=== PATIENT | female | born 1980 | race African-American/Black ===

== ENCOUNTER 2017-11-16 16:48 | Emergency (ER) | payer MEDICAID, OTHER ==
[~2017-11-16] VITALS: Ht 170.2 cm; Wt 77.1 kg
[2017-11-16] MEDS ORDERED: NKM (17:10)
[2017-11-16 17:16] VITALS: BP 104/74
--- NOTE | 2017-11-16 17:38 | Emergency Room Report ---
History of Present Illness General Chief Complaint: General Complaint Source: Patient (Rubin Mir) Present Illness HPI 37 yo female patient presents to ER with complaints of "not feeling well" and insomnia. Patient reports she has not been eating a lot of food and feels she has been harming herself "by neglect". Patient states she she feels she "may hurt herself" if she is discharged home. Patient requesting transfer to psychiatric facility. Patient reports history of psychiatric holds. Patient reports history of bipolar, anxiety, and "thinks she might be" schizophrenic. Patient reports having an appointment with psychologist "coming up" but does not feel she will be able to "keep up with the appointments. Patient states she is not currently on any medications for psych disorders. Patient denies recent illness, fever, chest pain, SOB. (Rubin Mir) Allergies: Coded Allergies: No Known Allergies (Unverified , 11/17/17) Patient History Past Medical History: see triage record Pertinent Family History: unable to obtain Social History: Reports: smoking - cigarettes Last Menstrual Period: unknown Immunizations: UTD Reviewed Nursing Documentation: PMH: Agreed, PSxH: Agreed (Rubin Mir) Nursing Documentation-PMH Past Medical History: No History, Except For History Of Psychiatric Problem: Yes - Anxiety, Depression (Rubin Mir) Review of Systems All Other Systems: negative except mentioned in HPI (Rubin Mir) Physical Exam Vital Signs Date Time Temp Pulse Resp B/P (MAP) Pulse Ox O2 Delivery O2 Flow Rate FiO2 11/16/17 17:06 97.9 78 16 104/74 98 Room Air Sp02 EP Interpretation: reviewed, normal General Appearance: no apparent distress, alert, GCS 15, non-toxic, mild distress Head: normocephalic, atraumatic Eyes: bilateral eye normal inspection, bilateral eye PERRL ENT: hearing grossly normal, normal pharynx, no angioedema, normal voice Neck: full range of motion, supple/symm/no masses Respiratory: chest non-tender, lungs clear, normal breath sounds, speaking full sentences Cardiovascular #1: regular rate, rhythm, no edema Gastrointestinal: normal bowel sounds, non tender, soft, non-distended, no guarding, no rebound Genitourinary: no CVA tenderness Musculoskeletal: back normal, digits/nails normal, gait/station normal, normal range of motion, non-tender Neurologic: alert, oriented x3, responsive, environmental conflict manager III-XII nml as tested, motor strength/tone normal, sensory intact, speech normal Psychiatric: depressed affect Skin: normal color, no rash, warm/dry, well hydrated (Rubin Mir) Medical Decision Making PA Attestation Dr. Noble is my supervising Physician whom patient management has been discussed with. (Rubin Mir) Diagnostic Impression: Primary Impression: Encounter for person awaiting admission to psychiatric care setting ER Course Pt. presents to the ED c/o anxiety and insomnia. Ddx considered but are not limited to anxiety, depression, mental health disorder, suicidal ideation. Vital signs: are WNL, pt. is afebrile ORDERS: Began psych workup to clear patient for transfer to mental health facility. ER COURSE: Patient resting comfortably in bed, in no acute distress. Patient is medically cleared for discharge to mental health facility. Urine drug screen negative Serum alcohol negative (Patient re-evaluations below) DISCHARGE: At this time pt. is stable for d/c to mental health facility. Care plan and follow up instructions have been discussed with the patient prior to transfer. Discuss treatment plan with Dr. Calderon who will oversee transfer of patient. Test 11/17/17 01:00 Urine HCG, Qualitative Negative Labs Test 11/16/17 18:25 11/16/17 19:09 White Blood Count 7.0 K/UL (4.8-10.8) Red Blood Count 4.38 M/UL (4.20-5.40) Hemoglobin 13.6 G/DL (12.0-16.0) Hematocrit 40.8 % (37.0-47.0) Mean Corpuscular Volume 93 FL (80-99) Mean Corpuscular Hemoglobin 31.1 PG (27.0-31.0) Mean Corpuscular Hemoglobin Concent 33.4 G/DL (32.0-36.0) Red Cell Distribution Width 12.3 % (11.6-14.8) Platelet Count 228 K/UL (150-450) Mean Platelet Volume 7.2 FL (6.5-10.1) Neutrophils (%) (Auto) 50.6 % (45.0-75.0) Lymphocytes (%) (Auto) 43.5 % (20.0-45.0) Monocytes (%) (Auto) 3.4 % (1.0-10.0) Eosinophils (%) (Auto) 1.5 % (0.0-3.0) Basophils (%) (Auto) 1.0 % (0.0-2.0) Sodium Level 139 MMOL/L (136-145) Potassium Level 3.5 MMOL/L (3.5-5.1) Chloride Level 102 MMOL/L (98-107) Carbon Dioxide Level 28 MMOL/L (21-32) Anion Gap 9 mmol/L (5-15) Blood Urea Nitrogen 12 mg/dL (7-18) Creatinine 0.9 MG/DL (0.55-1.30) Estimat Glomerular Filtration Rate > 60 mL/min (>60) Glucose Level 121 MG/DL (74-106) Calcium Level 9.4 MG/DL (8.5-10.1) Total Bilirubin 0.2 MG/DL (0.2-1.0) Aspartate Amino Transf (AST/SGOT) 19 U/L (15-37) Alanine Aminotransferase (ALT/SGPT) 35 U/L (12-78) Alkaline Phosphatase 61 U/L (46-116) Total Protein 7.8 G/DL (6.4-8.2) Albumin 3.9 G/DL (3.4-5.0) Globulin 3.9 g/dL Albumin/Globulin Ratio 1.0 (1.0-2.7) Salicylates Level 5.7 ug/mL (2.8-20) Acetaminophen Level < 2 MCG/ML (10-30) Serum Alcohol < 3 mg/dL Urine Color Yellow Urine Appearance Clear Urine pH 6 (4.5-8.0) Urine Specific Avery 1.020 (1.005-1.035) Urine Protein Negative (NEGATIVE) Urine Glucose (UA) Negative (NEGATIVE) Urine Ketones Negative (NEGATIVE) Urine Occult Blood Negative (NEGATIVE) Urine Nitrite Negative (NEGATIVE) Urine Bilirubin Negative (NEGATIVE) Urine Urobilinogen Normal MG/DL (0.0-1.0) Urine Leukocyte Esterase 1+ (NEGATIVE) Urine RBC 0-2 /HPF (0 - 2) Urine WBC 0-2 /HPF (0 - 2) Urine Squamous Epithelial Cells Few /LPF (NONE/OCC) Urine Calcium Oxalate Crystals Few /LPF (NONE) Urine Bacteria None /HPF (NONE) Urine Opiates Screen Negative (NEGATIVE) Urine Barbiturates Screen Negative (NEGATIVE) Phencyclidine (PCP) Screen Negative (NEGATIVE) Urine Amphetamines Screen Negative (NEGATIVE) Urine Benzodiazepines Screen Negative (NEGATIVE) Urine Cocaine Screen Negative (NEGATIVE) Urine Marijuana (THC) Screen Negative (NEGATIVE) (Rubin Mir) ER Course The patient was accepted by [facility] for voluntary psych admission. (Yasir Calderon) Last Vital Signs Date Time Temp Pulse Resp B/P (MAP) Pulse Ox O2 Delivery O2 Flow Rate FiO2 11/16/17 17:06 97.9 78 16 104/74 98 Room Air Reevaluation Impression 0800PM Patient requesting Ativan or Benadryl to help "calm down". Patient reports feeling very anxious. Orders placed for Benadryl. Patient agrees to treatment. Patient is medically cleared to be transferred to Mental Health facility. 0930PM Patient complaining of anxiousness and requesting to be allowed to go outside to smoke a cigarette. Patient given Ativan 2mg. (Rubin Mir) Disposition: XFER SNF Condition: Stable Rubin Mir Nov 16, 2017 17:37 Yasir Calderon Nov 17, 2017 02:18
[2017-11-16 18:54] LABS: EOSINOPHILS % (AUTO) 1.5 % (0.0-3.0); HEMATOCRIT 40.8 % (37.0-47.0); HEMOGLOBIN 13.6 G/DL (12.0-16.0); LYMPHOCYTES % (AUTO) 43.5 % (20.0-45.0); MEAN CORPUSCULAR VOLUME 93 FL (80-99); MONOCYTES % (AUTO) 3.4 % (1.0-10.0); NEUTROPHILS % (AUTO) 50.6 % (45.0-75.0); PLATELET COUNT 228 K/UL (150-450); RED BLOOD COUNT 4.38 M/UL (4.20-5.40); RED CELL DISTRIBUTION WIDTH 12.3 % (11.6-14.8)
[2017-11-16 19:13] LABS: ANION GAP 9 mmol/L (5-15); BLOOD UREA NITROGEN 12 mg/dL (7-18); CALCIUM 9.4 MG/DL (8.5-10.1); CARBON DIOXIDE 28 MMOL/L (21-32); CHLORIDE 102 MMOL/L (98-107); CREATININE 0.9 MG/DL (0.55-1.30); POTASSIUM 3.5 MMOL/L (3.5-5.1); SODIUM 139 MMOL/L (136-145)
[2017-11-16 19:17] LABS: ALANINE AMINOTRANSFERASE 35 U/L (12-78); ALBUMIN 3.9 G/DL (3.4-5.0); ALKALINE PHOSPHATASE 61 U/L (46-116); ASPARTATE AMINO TRANSFERASE 19 U/L (15-37); BILIRUBIN,TOTAL 0.2 MG/DL (0.2-1.0)
[2017-11-16 19:34] LABS: APPEARANCE,URINE CLEAR; BILIRUBIN, URINE NEGATIVE (NEGATIVE); GLUCOSE, URINE (UA) NEGATIVE (NEGATIVE); KETONES,URINE NEGATIVE (NEGATIVE); LEUKOCYTE ESTERASE ,URINE 1+ (NEGATIVE); NITRITE,URINE NEGATIVE (NEGATIVE); PH,URINE 6 (4.5-8.0); PROTEIN,URINE NEGATIVE (NEGATIVE); UROBILINOGEN,URINE NORMAL MG/DL (0.0-1.0)
[2017-11-16 19:35] LABS: COLOR,URINE YELLOW
[2017-11-16] MEDS ORDERED: LORazepam 1mg tab ORAL ONE (21:45)
[2017-11-16 22:44] VITALS: BP 102/68
[2017-11-17 03:33] VITALS: BP 100/66
[2017-11-17 03:40] VITALS: BP 100/66
== END 2017-11-17 03:40 ==
LOC: MERGE 17:45 → EMR 17:45
DX: G47.00 Insomnia, unspecified (principal); Z75.1 Person awaiting admission to adequate facility elsewhere; F17.210 Nicotine dependence, cigarettes, uncomplicated
CPT/HCPCS: 36415; 80053; 80307; 80329; 81003; 81025; 85025; 99284